=== PATIENT | female | born 1950 | race Caucasian/White ===

== ENCOUNTER 2017-01-09 22:44 | Emergency (ER) | payer SELFPAY ==
--- NOTE | 2017-01-09 23:17 | EDM.PDOC ---
ED HPI GENERAL MEDICAL PROBLEM - General Chief Complaint: Gastrointestinal Problem Stated Complaint: DIARRHEA Time Seen by Provider: 01/09/17 23:02 - History of Present Illness INITIAL COMMENTS - FREE TEXT/NARRATIVE: HISTORY AND PHYSICAL: History of present illness: The patient is a 66-year-old female who was diagnosed with IBS many years ago and follows with Dr. Irving the clinic and presents stating that she started having profuse diarrhea about 1-1/2 hours ago and could not get off the toilet. The patient says that she normally has 2-3 bowel movements a day and she 'll have flareups where she'll have more bowel movements a couple times a week but that does not worry her. Tonight she had an episode where she felt she could not get up the toilet because of the spasm and the loose stools although they were not black and bloody. She says that in that timeframe she touch down there and she thought that she felt something sticking out and she is here for evaluation of that. She has no chest pain dizziness lightheadedness shortness of breath and no abdominal pain. She doesn't feel dehydrated. Review of systems: As per history of present illness and below otherwise all systems reviewed and negative. Past medical history: As per history of present illness and as reviewed below otherwise noncontributory. Surgical history: As per history of present illness and as reviewed below otherwise noncontributory. Social history: No reported history of drug or alcohol abuse. Family history: As per history of present illness and as reviewed below otherwise noncontributory. Physical exam: Gen.: Well-developed well-nourished female who is nontoxic and speaking clearly and easily in the ED. Vital signs of an review by me HEENT: Atraumatic, normocephalic, negative for conjunctival pallor or scleral icterus, mucous membranes moist, throat clear, neck supple, nontender, trachea midline. Lungs: Clear to auscultation, breath sounds equal bilaterally, chest nontender. Heart: S1S2, regular rate and rhythm no overt murmurs Abdomen: Soft, nondistended, nontender. Bowel sounds are very hyperactive and there is tympany on percussion but there is no tenderness rebound or guarding. Negative for masses or hepatosplenomegaly. Negative for costovertebral tenderness. Pelvis: Stable nontender. Genitourinary: Deferred. Rectal: There are no gross lesions and tone is intact. At a proximally 11:00 lithotomy position there is a small firm area which is nontender and somewhat clearish whitish in color and extends up past the anal verge. There is no bleeding. Extremities: Atraumatic, negative for cords or calf pain. Neurovascular unremarkable. Neuro: Awake, alert, oriented. Cranial nerves II through XII unremarkable. Cerebellum unremarkable. Motor and sensory unremarkable throughout. Exam nonfocal. Diagnostics: [] Therapeutics: [] I offered the patient workup for her diarrhea and she would defer that at this time. It appears that her family encouraged her coming in because they were worried about her rectal prolapse which I am not seeing here. I did ask her to follow-up with Dr. Alvares to get a repeat colonoscopy as her last one was about 3 years ago and in light of her history she should get that repeated. I also told her that this may be a small hemorrhoid or lesion that would need to be further evaluated. Impression: Episode of profuse diarrhea improved with rectal lesion stable Definitive disposition and diagnosis as appropriate pending reevaluation and review of above. 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 ED EXAM, GENERAL - Physical Exam Exam: See Below (See dictation) Course - Vital Signs Last Recorded V/S: Last Vital Signs Temp 36.3 C 01/09/17 22:44 Pulse 73 01/09/17 22:44 Resp 18 01/09/17 22:44 BP 144/69 H 01/09/17 22:44 Pulse Ox 94 L 01/09/17 22:44 Departure - Departure Time of Disposition: 23:16 Disposition: Home, Self-Care 01 Condition: Good Clinical Impression: Rectal pain, History of IBS - Discharge Information Referrals: PCP,None [Primary Care Provider] - Additional Instructions: The following information is given to patients seen in the emergency department who are being discharged to home. This information is to outline your options for follow-up care. We provide all patients seen in our emergency department with a follow-up referral. The need for follow-up, as well as the timing and circumstances, are variable depending upon the specifics of your emergency department visit. If you don't have a primary care physician on staff, we will provide you with a referral. We always advise you to contact your personal physician following an emergency department visit to inform them of the circumstance of the visit and for follow-up with them and/or the need for any referrals to a consulting specialist. The emergency department will also refer you to a specialist when appropriate. This referral assures that you have the opportunity for followup care with a specialist. All of these measure are taken in an effort to provide you with optimal care, which includes your followup. Under all circumstances we always encourage you to contact your private physician who remains a resource for coordinating your care. When calling for followup care, please make the office aware that this follow-up is from your recent emergency room visit. If for any reason you are refused follow-up, please contact the [facility] emergency department at and ask to speak to the emergency department charge nurse. [facility] Primary care- Internal Medicine and Family [address] [address] Please call and follow-up with Dr. Alvares in the clinic as we discussed to get a referral for repeat colonoscopy as you are due. If the area your rectum becomes larger or painful please return to ER or see her provider. Please monitor this area for any changes or new problems. Return to ER as needed and as discussed
[2017-01-09 23:30] VITALS: BP 140/71
== END 2017-01-09 23:30 | disposition home or self-care (01) ==
LOC: MW.ED 22:44
DX: K62.89 Other specified diseases of anus and rectum (principal); R19.7 Diarrhea, unspecified; Z87.19 Personal history of other diseases of the digestive system
CPT/HCPCS: 99282; 99283

== ENCOUNTER 2017-07-12 21:28 | Emergency (ER) | payer MEDICAID, MEDICARE ==
[2017-07-12] MEDS ORDERED: methylPREDNISolone Sodium Succinate 125 MG/2 ML SDV IVPUSH ONE (21:37)
[2017-07-12] MEDS ORDERED: Albuterol/Ipratropium 3.0-0.5 MG/3 ML Neb Soln NEB ONE (21:37)
--- NOTE | 2017-07-12 21:39 | EDM.PDOC ---
ED HPI GENERAL MEDICAL PROBLEM - General Chief Complaint: Respiratory Problem Stated Complaint: TROUBLE BREATHING Time Seen by Provider: 07/12/17 21:39 Source of Information: Reports: Patient - History of Present Illness INITIAL COMMENTS - FREE TEXT/NARRATIVE: HISTORY AND PHYSICAL: History of present illness: [Patient presented to emergency room by private vehicle for shortness of breath , apparently she has a history of asthma and remote smoking history she has been on prednisone and doxycycline as of recent for a bronchitis as well as using HFA inhaler On arrival she was provided 5 Solu-Medrol 125 mg IV and DuoNeb which improved her resolved symptoms O2 sats remained normal her lungs have improved nicely still slightly diminished on the right lower base however patient is it off is offered admission but refuses she does have access to a nebulizer machine and albuterol nebs child recommended she take 3 times per day she is on oral prednisone and essentially failed that however at patients request/desire she will return home and use the nebs if she has symptoms persist or worsen she'll return Currently no fever nausea vomiting chills sweats she does have persistent cough she is no longer short of breath progressed with performed ambulatory O2 sats remained 9697% ] Review of systems: As per history of present illness and below otherwise all systems reviewed and negative. Past medical history: As per history of present illness and as reviewed below otherwise noncontributory. Surgical history: As per history of present illness and as reviewed below otherwise noncontributory. Social history: No reported history of drug or alcohol abuse. Family history: As per history of present illness and as reviewed below otherwise noncontributory. Physical exam: HEENT: Atraumatic, normocephalic, pupils reactive, negative for conjunctival pallor or scleral icterus, mucous membranes moist, throat clear, neck supple, nontender, trachea midline. Lungs: Clear to auscultation, breath sounds equal bilaterally, chest nontender.Post DuoNeb and Solu-Medrol Heart: S1S2, regular, negative for clicks, rubs, or JVD. Abdomen: Soft, nondistended, nontender. Negative for masses or hepatosplenomegaly. Negative for costovertebral tenderness. Pelvis: Stable nontender. Genitourinary: Deferred. Rectal: Deferred. Extremities: Atraumatic, negative for cords or calf pain. Neurovascular unremarkable. Neuro: Awake, alert, oriented. Cranial nerves II through XII unremarkable. Cerebellum unremarkable. Motor and sensory unremarkable throughout. Exam nonfocal. Diagnostics: []CBC CMP UA troponin BN peptide EKG Chest 1 view Therapeutics: []Normal saline 1 25 mL DuoNeb Solu-Medrol 125 mg IV Continue current medications Albuterol nebs tonight every 4 hours as needed DuoNeb prescription provided to fill in the morning Impression: []Short of breath Leukocytosis likely elevated with prednisone however neutrophils are slightly BUMPED patient is currently on doxycycline Recent bronchitis diagnosis chronic asthma/COPD Definitive disposition and diagnosis as appropriate pending reevaluation and review of above. denies pain Pain Score (Numeric/FACES): 0 - Related Data Allergies Allergy/AdvReac Type Severity Reaction Status Date / Time No Known Allergies Allergy Verified 07/12/17 21:37 Home Meds: Home Meds LORazepam 1 tab PO ASDIRECTED PRN 10/07/13 [History] PARoxetine [Paxil] 1 tab PO DAILY 10/07/13 [History] Past Medical History - Past Health History Medical/Surgical History: Denies Medical/Surgical History Cardiovascular History: Reports: Other (See Below) Other Cardiovascular History: clots Gastrointestinal History: Reports: Irritable Bowel Syndrome [employer] History: Reports: Psychiatric History: Reports: Anxiety - Past Surgical History Female Surgical History: Reports: Tubal Ligation Social & Family History - Family History Family Medical History: Noncontributory - Caffeine Use Caffeine Use: Reports: Coffee Caffeine Use Comment: daily ED ROS GENERAL - Review of Systems Review Of Systems: ROS reveals no pertinent complaints other than HPI. ED EXAM, GENERAL - Physical Exam Exam: See Below Course - Vital Signs Last Recorded V/S: Last Vital Signs Temp 98.6 F 07/12/17 22:51 Pulse 96 07/12/17 22:51 Resp 24 H 07/12/17 22:51 BP 140/71 07/12/17 22:51 Pulse Ox 98 07/12/17 22:51 - Orders/Labs/Meds Orders: Active Orders 24 hr Category Date Time Status EKG Documentation Completion [RC] STAT Care 07/12/17 21:37 Active RT Aerosol Therapy [RC] ASDIRECTED Care 07/12/17 21:38 Active Chest 1V Frontal [CR] Stat Exams 07/12/17 21:37 Taken UA W/MICROSCOPIC [URIN] Stat Lab 07/12/17 22:44 Ordered Sodium Chloride 0.9% [Normal Saline] 1,000 ml Med 07/12/17 21:45 Active IV STAT Medication Orders Sodium Chloride (Normal Saline) 1,000 mls @ 125 mls/hr IV STAT SINAN Last Admin: 07/12/17 21:55 Dose: 125 mls/hr Labs: Laboratory Tests 07/12/17 07/12/17 07/12/17 Range/Units 21:30 21:30 21:30 WBC 15.67 H (4.0-11.0) K/uL RBC 3.88 L (4.30-5.90) M/uL Hgb 13.7 (12.0-16.0) g/dL Hct 38.1 (36.0-46.0) % MCV 98.2 H (80.0-98.0) fL MCH 35.3 H (27.0-32.0) pg MCHC 36.0 (31.0-37.0) g/dL RDW Std Deviation 46.2 (28.0-62.0) fl RDW Coeff of Vishal 13 (11.0-15.0) % Plt Count 313 (150-400) K/uL MPV 11.00 (7.40-12.00) fL Add Manual Diff YES Neutrophils % (Manual) 84 H (48.0-80.0) % Lymphocytes % (Manual) 9 L (16.0-40.0) % Monocytes % (Manual) 6 (0.0-15.0) % Eosinophils % (Manual) 1 (0.0-7.0) % Nucleated RBC % 0.0 /100WBC Absolute Seg Neuts 13.2 H (1.4-5.7) Lymphocytes # (Manual) 1.4 (0.6-2.4) Monocytes # (Manual) 0.9 H (0.0-0.8) Eosinophils # (Manual) 0.2 (0.0-0.7) Nucleated RBCs # 0 K/uL Sodium 131 L (136-145) mmol/L Potassium 3.7 (3.5-5.1) mmol/L Chloride 100 (98-107) mmol/L Carbon Dioxide 16.5 L (21.0-32.0) mmol/L BUN 9 (7.0-18.0) mg/dL Creatinine 0.7 (0.6-1.0) mg/dL Est Cr Clr Drug Dosing TNP Estimated GFR (MDRD) > 60.0 ml/min Glucose 122 H (74-106) mg/dL Calcium 8.7 (8.5-10.1) mg/dL Total Bilirubin 0.2 (0.2-1.0) mg/dL AST 55 H (15-37) IU/L ALT 49 (14-63) IU/L Alkaline Phosphatase 176 H (46-116) U/L Troponin I < 0.050 (0.000-0.056) ng/mL B-Natriuretic Peptide 56 (<100) PG/ML Total Protein 7.6 (6.4-8.2) g/dL Albumin 3.6 (3.4-5.0) g/dL Globulin 4.0 H (2.0-3.5) g/dL Albumin/Globulin Ratio 0.9 L (1.3-2.8) Urine Color Urine Appearance Urine pH (5.0-8.0) Ur Specific [place] (1.001-1.035) Urine Protein (NEGATIVE) mg/dL Urine Glucose (UA) (NEGATIVE) mg/dL Urine Ketones (NEGATIVE) mg/dL Urine Occult Blood (NEGATIVE) Urine Nitrite (NEGATIVE) Urine Bilirubin (NEGATIVE) Urine Urobilinogen (<2.0) EU/dL Ur Leukocyte Esterase (NEGATIVE) Urine RBC (0-2/HPF) Urine WBC (0-5/HPF) Ur Epithelial Cells (NONE-FEW) Urine Bacteria (NEGATIVE) 07/12/17 Range/Units 22:44 WBC (4.0-11.0) K/uL RBC (4.30-5.90) M/uL Hgb (12.0-16.0) g/dL Hct (36.0-46.0) % MCV (80.0-98.0) fL MCH (27.0-32.0) pg MCHC (31.0-37.0) g/dL RDW Std Deviation (28.0-62.0) fl RDW Coeff of Vishal (11.0-15.0) % Plt Count (150-400) K/uL MPV (7.40-12.00) fL Add Manual Diff Neutrophils % (Manual) (48.0-80.0) % Lymphocytes % (Manual) (16.0-40.0) % Monocytes % (Manual) (0.0-15.0) % Eosinophils % (Manual) (0.0-7.0) % Nucleated RBC % /100WBC Absolute Seg Neuts (1.4-5.7) Lymphocytes # (Manual) (0.6-2.4) Monocytes # (Manual) (0.0-0.8) Eosinophils # (Manual) (0.0-0.7) Nucleated RBCs # K/uL Sodium (136-145) mmol/L Potassium (3.5-5.1) mmol/L Chloride (98-107) mmol/L Carbon Dioxide (21.0-32.0) mmol/L BUN (7.0-18.0) mg/dL Creatinine (0.6-1.0) mg/dL Est Cr Clr Drug Dosing Estimated GFR (MDRD) ml/min Glucose (74-106) mg/dL Calcium (8.5-10.1) mg/dL Total Bilirubin (0.2-1.0) mg/dL AST (15-37) IU/L ALT (14-63) IU/L Alkaline Phosphatase (46-116) U/L Troponin I (0.000-0.056) ng/mL B-Natriuretic Peptide (<100) PG/ML Total Protein (6.4-8.2) g/dL Albumin (3.4-5.0) g/dL Globulin (2.0-3.5) g/dL Albumin/Globulin Ratio (1.3-2.8) Urine Color YELLOW Urine Appearance CLEAR Urine pH 6.0 (5.0-8.0) Ur Specific [place] <= 1.005 (1.001-1.035) Urine Protein NEGATIVE (NEGATIVE) mg/dL Urine Glucose (UA) NEGATIVE (NEGATIVE) mg/dL Urine Ketones NEGATIVE (NEGATIVE) mg/dL Urine Occult Blood NEGATIVE (NEGATIVE) Urine Nitrite NEGATIVE (NEGATIVE) Urine Bilirubin NEGATIVE (NEGATIVE) Urine Urobilinogen 0.2 (<2.0) EU/dL Ur Leukocyte Esterase NEGATIVE (NEGATIVE) Urine RBC 0-1 (0-2/HPF) Urine WBC 0-1 (0-5/HPF) Ur Epithelial Cells RARE (NONE-FEW) Urine Bacteria RARE (NEGATIVE) Meds: Medications Generic Name Dose Route Start Last Admin Trade Name Freq PRN Reason Stop Dose Admin Sodium Chloride 1,000 mls @ 125 mls/hr 07/12/17 21:45 07/12/17 21:55 Normal Saline IV 125 mls/hr STAT SINAN Administration Discontinued Medications Generic Name Dose Route Start Last Admin Trade Name Freq PRN Reason Stop Dose Admin Albuterol/Ipratropium 3 ml 07/12/17 21:37 07/12/17 21:58 Duoneb 3.0-0.5 Mg/3 Ml NEB 07/12/17 21:38 3 ml ONETIME ONE Administration Methylprednisolone Sodium Succinate 125 mg 07/12/17 21:37 07/12/17 21:55 Solu-Medrol IVPUSH 07/12/17 21:38 125 mg ONETIME ONE Administration Departure - Departure Time of Disposition: 23:52 Disposition: Home, Self-Care 01 Condition: Fair Clinical Impression: Cough, COPD (chronic obstructive pulmonary disease) - Discharge Information Referrals: PCP,None [Primary Care Provider] - Forms: ED Department Discharge Additional Instructions: Continue current medication as prescribed Recommend albuterol nebs every 4 hours as needed, Which you have available at home I'll provide a prescription for DuoNeb to use 3-4 times daily for 7-10 days strongly recommend Follow-up with your primary care provider within one week for recheck return to the emergency room if symptoms persist or worsen The following information is given to patients seen in the emergency department who are being discharged to home. This information is to outline your options for follow-up care. We provide all patients seen in our emergency department with a follow-up referral. The need for follow-up, as well as the timing and circumstances, are variable depending upon the specifics of your emergency department visit. If you don't have a primary care physician on staff, we will provide you with a referral. We always advise you to contact your personal physician following an emergency department visit to inform them of the circumstance of the visit and for follow-up with them and/or the need for any referrals to a consulting specialist. The emergency department will also refer you to a specialist when appropriate. This referral assures that you have the opportunity for follow-up care with a specialist. All of these measure are taken in an effort to provide you with optimal care, which includes your follow-up. Under all circumstances we always encourage you to contact your private physician who remains a resource for coordinating your care. When calling for follow-up care, please make the office aware that this follow-up is from your recent emergency room visit. If for any reason you are refused follow-up, please contact the [facility] emergency department at and asked to speak to the emergency department charge nurse. - My Orders Last 24 Hours: My Active Orders 07/12/17 21:37 EKG Documentation Completion [RC] STAT Chest 1V Frontal [CR] Stat 07/12/17 21:38 RT Aerosol Therapy [RC] ASDIRECTED 07/12/17 21:45 Sodium Chloride 0.9% [Normal Saline] 1,000 ml IV STAT 07/12/17 22:44 UA W/MICROSCOPIC [URIN] Stat - Assessment/Plan Last 24 Hours: My Active Orders 07/12/17 21:37 EKG Documentation Completion [RC] STAT Chest 1V Frontal [CR] Stat 07/12/17 21:38 RT Aerosol Therapy [RC] ASDIRECTED 07/12/17 21:45 Sodium Chloride 0.9% [Normal Saline] 1,000 ml IV STAT 07/12/17 22:44 UA W/MICROSCOPIC [URIN] Stat
[2017-07-12] MEDS ORDERED: Sodium Chloride 0.9% 1,000 ML IV SCH (21:45)
[2017-07-12 22:47] LABS: CHLORIDE,CL 100 mmol/L (98-107); SODIUM,NA 131 mmol/L (136-145)
[2017-07-13 02:07] VITALS: BP 143/70
--- NOTE | 2017-07-13 13:02 | CR ---
EXAM DATE: 07/12/17 PATIENT'S AGE: 67 Patient: JOSHUA KEYS Facility: [place], [place] Site . Site : 1950 Study: XRay Chest [id number] 10:31:03 PM Ordering Physician: Doctor Dubose Final Report: Indication: Shortness of breath, dyspnea Technique: Chest 1 view Comparison: March 27, 2009. Findings/Impression: Normal cardiac size. No pneumothorax, significant effusion, or focal infiltrate. No acute osseous abnormality. Dictated by Missy Monique MD @ Jul 12 2017 10:39PM (Electronic Signature) Report Signed by Proxy. EMBER
== END 2017-07-13 | disposition home or self-care (01) ==
LOC: MW.ED 21:28
DX: J44.9 Chronic obstructive pulmonary disease, unspecified (principal); F41.9 Anxiety disorder, unspecified; Z79.899 Other long term (current) drug therapy
CPT/HCPCS: 36415; 71045; 80053; 81001; 83880; 84484; 85025; 93005; 94640; 96361; 96374; 99285; J2930; J7040; 99284

== ENCOUNTER 2019-02-19 22:01 | Emergency (ER) | payer MEDICARE ==
[2019-02-19] MEDS ORDERED: Albuterol/Ipratropium 3.0-0.5 MG/3 ML Neb Soln NEB ONE (22:02)
[2019-02-19 22:11] VITALS: BP 138/105; PULSE 102
[2019-02-19] MEDS ORDERED: methylPREDNISolone Sodium Succinate 125 MG/2 ML SDV IVPUSH ONE (22:32)
[2019-02-19] MEDS ORDERED: LORazepam 2 MG/ML SDV IVPUSH ONE ×2 (22:32→23:15)
--- NOTE | 2019-02-20 00:07 | EDM.PDOC ---
ED HPI GENERAL MEDICAL PROBLEM - General Chief Complaint: Respiratory Problem Stated Complaint: HARD TIME BREATHING Time Seen by Provider: 02/19/19 22:36 Source of Information: Reports: Patient History Limitations: Reports: No Limitations - History of Present Illness INITIAL COMMENTS - FREE TEXT/NARRATIVE: This is a 69-year-old female who presents with shortness of breath. Patient has a history of COPD has been using her inhaler without success. Patient presents to the emergency room wheezing short of breath and very anxious. 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 Treatments - Related Data Allergies Allergy/AdvReac Type Severity Reaction Status Date / Time No Known Allergies Allergy Verified 02/19/19 22:09 Home Meds: Home Meds LORazepam 1 tab PO ASDIRECTED PRN 10/07/13 [History] Albuterol Sulfate [Albuterol Sulfate Hfa] 18 gm IH ASDIRECTED 02/19/19 [History] Albuterol/Ipratropium [DuoNeb 3.0-0.5 MG/3 ML] 3 ml .XX ASDIRECTED 02/19/19 [ History] Escitalopram [Lexapro] 10 mg PO DAILY 02/19/19 [History] Past Medical History - Past Health History Medical/Surgical History: Denies Medical/Surgical History HEENT History: Reports: None Cardiovascular History: Reports: Blood Clots/VTE/DVT Other Cardiovascular History: clots Respiratory History: Reports: Asthma, COPD Gastrointestinal History: Reports: Irritable Bowel Syndrome Genitourinary History: Reports: None 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: Musculoskeletal History: Reports: None Neurological History: Reports: None Psychiatric History: Reports: Anxiety, Depression Endocrine/Metabolic History: Reports: None Hematologic History: Reports: None Immunologic History: Reports: None Oncologic (Cancer) History: Reports: None Dermatologic History: Reports: None - Infectious Disease History Infectious Disease History: Reports: Chicken Pox - Past Surgical History Head Surgeries/Procedures: Reports: None GI Surgical History: Reports: Appendectomy Female Surgical History: Reports: Tubal Ligation Social & Family History - Family History Family Medical History: Noncontributory - Tobacco Use Smoking Status *Q: Former Smoker Used Tobacco, but Quit: Yes Month/Year Tobacco Last Used: 1989 - Caffeine Use Caffeine Use: Reports: Coffee Caffeine Use Comment: daily - Recreational Drug Use Recreational Drug Use: No ED ROS GENERAL - Review of Systems Review Of Systems: See Below Constitutional: Reports: No Symptoms HEENT: Reports: No Symptoms Respiratory: Reports: Shortness of Breath, Wheezing Cardiovascular: Reports: No Symptoms Endocrine: Reports: No Symptoms GI/Abdominal: Reports: No Symptoms : Reports: No Symptoms Musculoskeletal: Reports: No Symptoms Skin: Reports: No Symptoms Neurological: Reports: No Symptoms Psychiatric: Reports: Anxiety Hematologic/Lymphatic: Reports: No Symptoms Immunologic: Reports: No Symptoms ED EXAM, GENERAL - Physical Exam Exam: See Below Free Text/Narrative:: 69-year-old patient presents with wheezing. On exam patient is wheezing bilaterally. Patient denies chest pain patient abdomen soft nontender patient' s extremities are normal. Patient back is is normal. Exam Limited By: No Limitations General Appearance: Alert, WD/WN, Anxious, Mild Distress Eye Exam: Bilateral Eye: Normal Fundi, Normal Inspection Ears: Normal External Exam, Normal Canal, Hearing Grossly Normal, Normal TMs Ear Exam: Bilateral Ear: Auricle Normal, Canal Normal Nose: Normal Inspection, Normal Mucosa, No Blood Throat/Mouth: Normal Inspection, Normal Lips, Normal Teeth, Normal Gums Head: Atraumatic, Normocephalic Neck: Normal Inspection, Supple Respiratory/Chest: Crackles, Wheezing Cardiovascular: Normal Peripheral Pulses, Regular Rate, Rhythm, No Edema GI/Abdominal: Normal Bowel Sounds, Soft, Non-Tender (Female) Exam: Deferred Rectal (Female) Exam: Deferred Extremities: Normal Inspection, Normal Range of Motion, No Pedal Edema, Normal Capillary Refill Neurological: Alert, Oriented, CN II-XII Intact, Normal Reflexes Psychiatric: Anxious, Tearful Skin Exam: Warm, Dry, Intact, Normal Color EKG INTERPRETATION EKG Date: 02/20/19 Rhythm: NSR Course - Vital Signs Last Recorded V/S: Last Vital Signs Temp 97.8 F 02/19/19 22:07 Pulse 102 H 02/19/19 22:07 Resp 33 H 02/19/19 22:07 BP 138/105 H 02/19/19 22:07 Pulse Ox 97 02/19/19 22:07 - Orders/Labs/Meds Orders: Active Orders 24 hr Category Date Time Status RT Aerosol Therapy [RC] ASDIRECTED Care 02/19/19 22:02 Active Chest 1V Frontal [CR] Stat Exams 02/19/19 22:41 Taken Meds: Medications Discontinued Medications Generic Name Dose Route Start Last Admin Trade Name Bobby PRN Reason Stop Dose Admin Albuterol/Ipratropium 3 ml 02/19/19 22:02 02/19/19 22:01 Duoneb 3.0-0.5 Mg/3 Ml NEB 02/19/19 22:03 3 ml ONETIME ONE Administration Lorazepam 0.5 mg 02/19/19 22:32 02/19/19 22:39 Ativan IVPUSH 02/19/19 22:33 0.5 mg ONETIME ONE Administration Lorazepam 1 mg 02/19/19 23:15 Ativan IVPUSH 02/19/19 23:16 ONETIME ONE Methylprednisolone Sodium Succinate 125 mg 02/19/19 22:32 02/19/19 22:39 Solu-Medrol IVPUSH 02/19/19 22:33 125 mg ONETIME ONE Administration Departure - Departure Time of Disposition: 00:08 Disposition: Home, Self-Care 01 Condition: Good Clinical Impression: COPD (chronic obstructive pulmonary disease) Qualifiers: COPD type: chronic bronchitis Chronic bronchitis type: simple Qualified Code(s) : J41.0 - Simple chronic bronchitis - Discharge Information Referrals: Anselmo Alvares MD [Primary Care Provider] - Sepsis Event Note - Evaluation Sepsis Screening Result: No Definite Risk - Focused Exam Vital Signs: Vital Signs Temp Pulse Resp BP Pulse Ox 02/19/19 22:07 97.8 F 102 H 33 H 138/105 H 97 Date Exam was Performed: 02/20/19 Time Exam was Performed: 00:02 - My Orders Last 24 Hours: My Active Orders 02/19/19 22:41 Chest 1V Frontal [CR] Stat - Assessment/Plan Last 24 Hours: My Active Orders 02/19/19 22:41 Chest 1V Frontal [CR] Stat
--- NOTE | 2019-02-20 00:07 | CR ---
INDICATION: sob. hx of copd TECHNIQUE: Chest 1 view. COMPARISON: 07/12/16 FINDINGS: Cardiovascular and mediastinum: Heart size and vasculature are normal in caliber and appearance. Mediastinum is within normal limits. Lungs and pleural space: Lungs are clear. No sign of infiltrate or mass. No sign of pleural effusion. No pneumothorax. Bones and soft tissues: No significant findings. IMPRESSION: Unremarkable chest. Dictated by: Baldomero Jacob MD @ 02/20/2019 00:07:02 (Electronically Signed)
== END 2019-02-20 00:20 | disposition home or self-care (01) ==
LOC: MW.ED 22:01
DX: J41.0 Simple chronic bronchitis (principal); F41.9 Anxiety disorder, unspecified; F32.9 Major depressive disorder, single episode, unspecified; Z79.899 Other long term (current) drug therapy; Z87.891 Personal history of nicotine dependence
CPT/HCPCS: 71045; 93005; 96374; 96375; 99285; J2060; J2930; 99284; J7620-GY

== ENCOUNTER 2021-09-12 00:06 | Emergency (ER) | payer MEDICARE ==
[2021-09-12 00:47] LABS: CARBON DIOXIDE,CO2 22.2 mmol/L (21.0-32.0); POTASSIUM,K 3.6 mmol/L (3.5-5.1)
[2021-09-12] MEDS ORDERED: Acetaminophen 500 MG Tab PO ONE (02:51)
[2021-09-12 04:37] VITALS: BP 124/72; PULSE 77
== END 2021-09-12 04:36 | disposition home or self-care (01) ==
LOC: MW.ED 00:06
DX: R07.89 Other chest pain (principal); R42 Dizziness and giddiness; J45.909 Unspecified asthma, uncomplicated; Z79.899 Other long term (current) drug therapy; Z90.49 Acquired absence of other specified parts of digestive tract; Z20.822 Contact with and (suspected) exposure to COVID-19
CPT/HCPCS: 36415; 71045; 80053; 81001; 83880; 84484; 85025; 93005; 99285; A9270; U0002; 93010; 99284

== ENCOUNTER 2023-02-21 12:07 | Observation (INO) | payer MEDICARE, MEDICAID ==
[2023-02-21] MEDS ORDERED: Albuterol/Ipratropium 3.0-0.5 MG/3 ML Neb Soln ONE (13:15)
[2023-02-21] MEDS ORDERED: methylPREDNISolone Sodium Succinate 125 MG/2 ML SDV IVPUSH ONE (13:19)
[2023-02-21] MEDS ORDERED: Magnesium Sulfate (4.06 MEQ/ML) 5 GM/10 ML SDV IV STA (13:19)
[2023-02-21] MEDS ORDERED: Albuterol/Ipratropium 3.0-0.5 MG/3 ML Neb Soln NEB ONE ×3 (13:19→15:47)
[2023-02-21] MEDS ORDERED: Magnesium Sulfate/Water 2 GM in Premix Bag 1 BAG IV ONE (13:42)
[2023-02-21 13:44] LABS: HEMATOCRIT 39.4 % (37.0-47.0); MEAN CORPUSCULAR HEMOGLOBIN 32.3 pg (28.0-32.0); MEAN CORPUSCULAR HGB CONC 35.5 g/dL (32.0-36.0); PLATELET COUNT,PLT 260 K/uL (150-400); RED BLOOD CELL COUNT 4.33 M/uL (4.10-5.30); WHITE BLOOD CELL COUNT,WBC 11.93 K/uL (3.9-11.3)
[2023-02-21 14:08] LABS: A/G RATIO 0.8 (0.9-1.6); ALBUMIN 3.4 g/dL (3.4-5.0); BILIRUBIN TOTAL 0.5 mg/dL (0.2-1.0); CALCIUM 9.3 mg/dL (8.5-10.1); CARBON DIOXIDE,CO2 27.5 mmol/L (21.0-32.0); EST CRCL DRUG DOSING (CG) 38.94 mL/min; MAGNESIUM 2.1 mg/dL (1.8-2.4); POTASSIUM,K 3.6 mmol/L (3.5-5.1); PROTEIN TOTAL,TP 7.7 g/dL (6.4-8.2)
[2023-02-21 14:48] LABS: BASOPHILS ABSOLUTE MAN 0.12 K/uL (0.00-0.20); BASOPHILS PERCENT MAN 1 % (0-1); EOSINOPHILS ABSOLUTE MAN 0.12 K/uL (0.00-0.45); EOSINOPHILS PERCENT MAN 1 % (0-6); MONOCYTES ABSOLUTE MAN 0.84 K/uL (0.00-0.80); MONOCYTES PERCENT MAN 7 % (0-8); SEG NEUTROPHILS ABSOLUTE MAN 7.16 K/uL (1.80-7.70); SEG NEUTROPHILS PERCENT MAN 60 % (41-71)
[2023-02-21 14:50] LABS: REACTIVE LYMPHOCYTES FEW
[2023-02-21 14:51] LABS: LYMPHOCYTES PERCENT MAN 31 % (24-44)
[2023-02-21 15:33] LABS: CORONAVIRUS COVID-19 NAA NEGATIVE (NEGATIVE); INFLUENZA A NAA NEGATIVE (NEGATIVE); INFLUENZA B NAA NEGATIVE (NEGATIVE); RESPIRATORY SYNCYTIAL VIR NAA POSITIVE (NEGATIVE)
[2023-02-21] MEDS ORDERED: Sodium Chloride 0.9% 10 ML Syringe FLUSH PRN (16:23)
[2023-02-21] MEDS ORDERED: Albuterol 0.083% 2.5 MG/3 ML Neb Soln NEB PRN (16:23)
[2023-02-21] MEDS ORDERED: Sodium Chloride 0.9% 2.5 ML Syringe FLUSH PRN (16:23)
[2023-02-21] MEDS ORDERED: Ondansetron 4 MG/2 ML SDV IVPUSH PRN (16:23)
[2023-02-21] MEDS ORDERED: Acetaminophen 325 MG Tab PO PRN (16:23)
[2023-02-21] MEDS ORDERED: Benzonatate 100 MG Cap PO PRN (16:58)
[2023-02-21] MEDS ORDERED: Sodium Chloride 0.9% 1,000 ML IV ONE (17:00)
[2023-02-21] MEDS ORDERED: Pneumococcal Polyvalent-23 Vaccine 0.5 ML SDV SUBCUT ONE (17:19)
[2023-02-21] MEDS: Codeine/guaiFENesin 10-100 MG/5 ML Syrup 5 ML Cup PO PRN (17:42)
[2023-02-21] MEDS: cefTRIAXone 1 GM in Sodium Chloride 0.9% 50 ML IV SCH (17:42)
[2023-02-21] MEDS: Albuterol/Ipratropium 3.0-0.5 MG/3 ML Neb Soln NEB SCH ×2 (18:18→21:02)
[2023-02-21] MEDS: LORazepam 1 MG Tab PO PRN (21:03)
[2023-02-21] MEDS: Apixaban 2.5 MG Tab PO SCH (21:04)
[2023-02-21] MEDS: Montelukast 10 MG Tab PO SCH (21:04)
[2023-02-21] MEDS: methylPREDNISolone Sodium Succinate 40 MG/1 ML SDV IVPUSH SCH (23:58)
[2023-02-22] MEDS: Albuterol/Ipratropium 3.0-0.5 MG/3 ML Neb Soln NEB SCH ×6 (03:03→21:22)
[2023-02-22 05:40] LABS: BASOPHILS ABSOLUTE AUTO 0.03 K/uL (0.00-0.20); BASOPHILS PERCENT AUTO 0.2 % (0.0-1.0); HEMATOCRIT 33.9 % (37.0-47.0); IMMATURE GRAN ABSOLUTE AUTO 0.39 K/uL (0.00-0.05); IMMATURE GRAN PERCENT AUTO 3.2 % (0.0-0.4); LYMPHOCYTES ABSOLUTE AUTO 1.42 K/uL (1.00-4.80); LYMPHOCYTES PERCENT AUTO 11.6 % (24.0-44.0); MEAN CORPUSCULAR HEMOGLOBIN 32.1 pg (28.0-32.0); MEAN CORPUSCULAR HGB CONC 35.4 g/dL (32.0-36.0); MEAN CORPUSCULAR VOLUME 90.6 fL (83.0-99.0); MEAN PLATELET VOLUME 10.1 fL (9.4-12.3); MONOCYTES ABSOLUTE AUTO 0.29 K/uL (0.00-0.80); MONOCYTES PERCENT AUTO 2.4 % (0.0-8.0); NEUTROPHILS ABSOLUTE AUTO 10.11 K/uL (1.80-7.70); NEUTROPHILS PERCENT AUTO 82.6 % (41.0-71.0); PLATELET COUNT,PLT 216 K/uL (150-400); RED BLOOD CELL COUNT 3.74 M/uL (4.10-5.30); WHITE BLOOD CELL COUNT,WBC 12.24 K/uL (3.9-11.3)
[2023-02-22 05:56] LABS: CALCIUM 8.5 mg/dL (8.5-10.1); CARBON DIOXIDE,CO2 25.7 mmol/L (21.0-32.0); CREATININE 0.9 mg/dL (0.6-1.0); EST CRCL DRUG DOSING (CG) 43.26 mL/min; POTASSIUM,K 3.5 mmol/L (3.5-5.1)
[2023-02-22] MEDS: Pantoprazole 40 MG Tab.CR PO SCH (06:32)
[2023-02-22] MEDS: Levothyroxine 25 MCG Tab PO SCH (08:58)
[2023-02-22] MEDS: buPROPion 150 MG Tab.ER PO SCH (08:59)
[2023-02-22] MEDS: amLODIPine 5 MG Tab PO SCH (09:00)
[2023-02-22] MEDS: Apixaban 2.5 MG Tab PO SCH ×2 (09:00→21:22)
[2023-02-22] MEDS: Escitalopram 10 MG Tab PO SCH (09:02)
[2023-02-22] MEDS: Rosuvastatin 10 MG Tab PO SCH (09:04)
[2023-02-22] MEDS: methylPREDNISolone Sodium Succinate 40 MG/1 ML SDV IVPUSH SCH ×2 (10:21→23:51)
[2023-02-22] MEDS: ADVAIR INH SCH ×2 (15:14→21:22)
[2023-02-22] MEDS: cefTRIAXone 1 GM in Sodium Chloride 0.9% 50 ML IV SCH (17:13)
[2023-02-22] MEDS: Montelukast 10 MG Tab PO SCH (21:22)
[2023-02-22] MEDS: LORazepam 1 MG Tab PO PRN (21:51)
[2023-02-23] MEDS: Codeine/guaiFENesin 10-100 MG/5 ML Syrup 5 ML Cup PO PRN (01:51)
[2023-02-23] MEDS: Albuterol/Ipratropium 3.0-0.5 MG/3 ML Neb Soln NEB SCH ×2 (01:51→06:56)
[2023-02-23 06:20] LABS: BASOPHILS ABSOLUTE AUTO 0.06 K/uL (0.00-0.20); BASOPHILS PERCENT AUTO 0.3 % (0.0-1.0); HEMATOCRIT 34.4 % (37.0-47.0); HEMOGLOBIN 12.1 g/dL (12.0-16.0); IMMATURE GRAN ABSOLUTE AUTO 0.96 K/uL (0.00-0.05); IMMATURE GRAN PERCENT AUTO 5.3 % (0.0-0.4); LYMPHOCYTES ABSOLUTE AUTO 1.24 K/uL (1.00-4.80); LYMPHOCYTES PERCENT AUTO 6.9 % (24.0-44.0); MEAN CORPUSCULAR HEMOGLOBIN 32.3 pg (28.0-32.0); MEAN CORPUSCULAR HGB CONC 35.2 g/dL (32.0-36.0); MEAN CORPUSCULAR VOLUME 91.7 fL (83.0-99.0); MEAN PLATELET VOLUME 10.1 fL (9.4-12.3); MONOCYTES ABSOLUTE AUTO 0.78 K/uL (0.00-0.80); MONOCYTES PERCENT AUTO 4.3 % (0.0-8.0); NEUTROPHILS ABSOLUTE AUTO 15.05 K/uL (1.80-7.70); NEUTROPHILS PERCENT AUTO 83.2 % (41.0-71.0); PLATELET COUNT,PLT 267 K/uL (150-400); RED BLOOD CELL COUNT 3.75 M/uL (4.10-5.30); WHITE BLOOD CELL COUNT,WBC 18.09 K/uL (3.9-11.3)
[2023-02-23 06:44] LABS: CALCIUM 8.8 mg/dL (8.5-10.1); CARBON DIOXIDE,CO2 26.3 mmol/L (21.0-32.0); EST CRCL DRUG DOSING (CG) 38.94 mL/min; POTASSIUM,K 3.7 mmol/L (3.5-5.1)
[2023-02-23] MEDS: Pantoprazole 40 MG Tab.CR PO SCH (06:56)
[2023-02-23] MEDS: Levothyroxine 25 MCG Tab PO SCH (06:56)
[2023-02-23] MEDS: ADVAIR INH SCH (06:56)
[2023-02-23] MEDS: amLODIPine 5 MG Tab PO SCH (08:41)
[2023-02-23] MEDS: Escitalopram 10 MG Tab PO SCH (08:42)
[2023-02-23] MEDS: Apixaban 2.5 MG Tab PO SCH (08:42)
[2023-02-23] MEDS: buPROPion 150 MG Tab.ER PO SCH (08:43)
[2023-02-23] MEDS: Rosuvastatin 10 MG Tab PO SCH (08:43)
[2023-02-23] MEDS: methylPREDNISolone Sodium Succinate 40 MG/1 ML SDV IVPUSH SCH (11:31)
[2023-02-23 12:53] VITALS: BP 146/66; PULSE 79
== END 2023-02-23 12:22 | disposition home or self-care (01) ==
LOC: MW.ED 12:07 → MW.MS 15:51
PROVIDERS: ADMIT Internal Medicine; ATTEND Internal Medicine
DX: J96.01 Acute respiratory failure with hypoxia (principal); J45.40 Moderate persistent asthma, uncomplicated; E03.9 Hypothyroidism, unspecified; J20.5 Acute bronchitis due to respiratory syncytial virus; F41.9 Anxiety disorder, unspecified; I10 Essential (primary) hypertension; Z87.891 Personal history of nicotine dependence; Z86.718 Personal history of other venous thrombosis and embolism; Z79.51 Long term (current) use of inhaled steroids; Z79.890 Hormone replacement therapy; Z79.899 Other long term (current) drug therapy
CPT/HCPCS: 0241U; 36415; 71045; 80048; 80053; 83735; 85025; 94640; 96365; 96366; 96367; 96375; 96376; 99285; A9270; G0378; J0696; J2920; J2930; J3475; J3490; J7030; 96374; J7620-GY

== ENCOUNTER 2023-12-26 18:16 | Emergency (ER) | payer MEDICARE, MEDICAID ==
[2023-12-26] MEDS ORDERED: Sodium Chloride 0.9% 10 ML Syringe FLUSH PRN (18:27)
[2023-12-26] MEDS ORDERED: Sodium Chloride 0.9% 2.5 ML Syringe FLUSH PRN (18:27)
[2023-12-26 18:40] LABS: BASOPHILS ABSOLUTE AUTO 0.09 K/uL (0.00-0.20); BASOPHILS PERCENT AUTO 0.6 % (0.0-1.0); EOSINOPHILS ABSOLUTE AUTO 0.12 K/uL (0.00-0.45); EOSINOPHILS PERCENT AUTO 0.9 % (0.0-6.0); HEMOGLOBIN 14.1 g/dL (12.0-16.0); IMMATURE GRAN ABSOLUTE AUTO 0.04 K/uL (0.00-0.05); IMMATURE GRAN PERCENT AUTO 0.3 % (0.0-0.4); LYMPHOCYTES PERCENT AUTO 22.3 % (24.0-44.0); MEAN CORPUSCULAR HEMOGLOBIN 32.8 pg (28.0-32.0); MEAN CORPUSCULAR HGB CONC 35.3 g/dL (32.0-36.0); MEAN PLATELET VOLUME 10.3 fL (9.4-12.3); MONOCYTES ABSOLUTE AUTO 1.06 K/uL (0.00-0.80); MONOCYTES PERCENT AUTO 7.6 % (0.0-8.0); NEUTROPHILS ABSOLUTE AUTO 9.47 K/uL (1.80-7.70); NEUTROPHILS PERCENT AUTO 68.3 % (41.0-71.0); PLATELET COUNT,PLT 287 K/uL (150-400); WHITE BLOOD CELL COUNT,WBC 13.88 K/uL (3.9-11.3)
[2023-12-26] MEDS: Albuterol/Ipratropium 3.0-0.5 MG/3 ML Neb Soln NEB ONE (18:46)
[2023-12-26] MEDS: LORazepam 2 MG/ML SDV IVPUSH ONE (18:46)
[2023-12-26] MEDS: methylPREDNISolone Sodium Succinate 125 MG/2 ML SDV IVPUSH ONE (18:46)
[2023-12-26 19:13] LABS: A/G RATIO 1.1 (0.9-1.6); ALBUMIN 3.8 g/dL (3.4-5.0); BILIRUBIN TOTAL 0.5 mg/dL (0.2-1.0); CALCIUM 9.5 mg/dL (8.5-10.1); CARBON DIOXIDE,CO2 22.6 mmol/L (21.0-32.0); CREATININE 1.3 mg/dL (0.6-1.0); EST CRCL DRUG DOSING (CG) 29.95 mL/min; PROTEIN TOTAL,TP 7.2 g/dL (6.4-8.2); TSH ULTRASENSITIVE 2.83 uIU/mL (0.36-3.74)
[2023-12-26 19:19] LABS: CORONAVIRUS COVID-19 NAA NEGATIVE (NEGATIVE); INFLUENZA A NAA NEGATIVE (NEGATIVE); INFLUENZA B NAA NEGATIVE (NEGATIVE)
[2023-12-26 20:09] VITALS: BP 124/64; PULSE 92
== END 2023-12-26 20:17 | disposition home or self-care (01) ==
LOC: MW.ED 18:16
DX: J45.901 Unspecified asthma with (acute) exacerbation (principal); I10 Essential (primary) hypertension; K21.9 Gastro-esophageal reflux disease without esophagitis; Z86.16 Personal history of COVID-19; Z79.899 Other long term (current) drug therapy; Z75.8 Other problems related to medical facilities and other health care
CPT/HCPCS: 0240U; 36415; 71045; 80053; 84443; 84484; 85025; 93005; 96374; 96375; 99285; J2060; J2919; 93010; 99284; J7620-GY

== ENCOUNTER 2024-09-25 18:53 | Emergency (ER) | payer MEDICARE, MEDICAID ==
[2024-09-25] MEDS: Diphtheria,Pertussis(Acell),Tetanus Vaccine 0.5 ML Syringe IM ONE (20:13)
[2024-09-25 20:30] VITALS: BP 140/80; PULSE 73
== END 2024-09-25 20:29 | disposition home or self-care (01) ==
LOC: MW.ED 18:53
DX: S61.551A Open bite of right wrist, initial encounter (principal); E78.00 Pure hypercholesterolemia, unspecified; I10 Essential (primary) hypertension; J45.909 Unspecified asthma, uncomplicated; K21.9 Gastro-esophageal reflux disease without esophagitis; Z91.048 Other nonmedicinal substance allergy status; Z79.51 Long term (current) use of inhaled steroids; Z79.899 Other long term (current) drug therapy; Z79.01 Long term (current) use of anticoagulants; W55.01XA Bitten by cat, initial encounter; Y93.89 Activity, other specified
CPT/HCPCS: 90471; 90715; 99283; A9270; 99282

== ENCOUNTER 2024-11-26 15:08 | Emergency (ER) | payer MEDICARE, MEDICAID ==
[2024-11-26 18:03] VITALS: BP 135/78; PULSE 87
== END 2024-11-26 18:18 | disposition home or self-care (01) ==
LOC: MW.ED 15:08
DX: S09.90XA Unspecified injury of head, initial encounter (principal); S32.10XA Unspecified fracture of sacrum, initial encounter for closed fracture; G44.319 Acute post-traumatic headache, not intractable; I10 Essential (primary) hypertension; J45.909 Unspecified asthma, uncomplicated; K21.9 Gastro-esophageal reflux disease without esophagitis; E78.00 Pure hypercholesterolemia, unspecified; Z79.01 Long term (current) use of anticoagulants; Z79.899 Other long term (current) drug therapy; Z79.51 Long term (current) use of inhaled steroids; Z86.711 Personal history of pulmonary embolism; W01.10XA Fall on same level from slipping, tripping and stumbling with subsequent striking against unspecified object, initial encounter
CPT/HCPCS: 70450; 70450-26; 72125; 72125-26; 72192; 72192-26; 99283

== ENCOUNTER 2025-01-30 03:44 | Emergency (ER) | payer MEDICARE, MEDICAID ==
[2025-01-30] MEDS ORDERED: Sodium Chloride 0.9% 10 ML Syringe FLUSH PRN (03:46)
[2025-01-30] MEDS ORDERED: Sodium Chloride 0.9% 2.5 ML Syringe FLUSH PRN (03:46)
[2025-01-30 03:57] LABS: BASOPHILS ABSOLUTE AUTO 0.08 K/uL (0.00-0.20); BASOPHILS PERCENT AUTO 1.1 % (0.0-1.0); EOSINOPHILS ABSOLUTE AUTO 0.19 K/uL (0.00-0.45); EOSINOPHILS PERCENT AUTO 2.7 % (0.0-6.0); IMMATURE GRAN ABSOLUTE AUTO 0.03 K/uL (0.00-0.05); IMMATURE GRAN PERCENT AUTO 0.4 % (0.0-0.4); LYMPHOCYTES ABSOLUTE AUTO 2.15 K/uL (1.00-4.80); LYMPHOCYTES PERCENT AUTO 30.2 % (24.0-44.0); MEAN PLATELET VOLUME 9.3 fL (9.4-12.3); MONOCYTES ABSOLUTE AUTO 0.86 K/uL (0.00-0.80); MONOCYTES PERCENT AUTO 12.1 % (0.0-8.0); NEUTROPHILS ABSOLUTE AUTO 3.82 K/uL (1.80-7.70); NEUTROPHILS PERCENT AUTO 53.5 % (41.0-71.0); NRBC ABSOLUTE 0.00 K/uL (0.00-0.02); NRBC PERCENT 0.0 /100WBC (0.0-0.2); PLATELET COUNT,PLT 242 K/uL (150-400); RED BLOOD CELL COUNT 3.94 M/uL (4.10-5.30); WHITE BLOOD CELL COUNT,WBC 7.13 K/uL (3.9-11.3)
[2025-01-30] MEDS: Ondansetron 4 MG/2 ML SDV IVPUSH ONE (04:09)
[2025-01-30 04:10] LABS: INR 0.98 (0.86-1.11)
[2025-01-30 04:24] LABS: A/G RATIO 1.1 (0.9-1.6); ALANINE AMINOTRANSFERASE,ALT 44 IU/L (14-63); ASPARTATE AMNIOTRANSFERASE,AST 46 IU/L (15-37); BILIRUBIN TOTAL 0.2 mg/dL (0.2-1.0); BLOOD UREA NITROGEN,BUN 12 mg/dL (7.0-18.0); CARBON DIOXIDE,CO2 24.4 mmol/L (21.0-32.0); CHLORIDE,CL 97 mmol/L (98-107); CREATININE 0.8 mg/dL (0.6-1.0); ETHANOL BLOOD MEDICAL 163 mg/dL; GLUCOSE RANDOM 104 mg/dL (74-106); POTASSIUM,K 4.0 mmol/L (3.5-5.1); PROTEIN TOTAL,TP 7.1 g/dL (6.4-8.2); SODIUM,NA 134 mmol/L (136-145)
[2025-01-30 04:26] LABS: ESTIMATED GFR 78 mL/min (>60)
[2025-01-30 05:20] VITALS: BP 127/78; PULSE 81
== END 2025-01-30 05:30 | disposition home or self-care (01) ==
LOC: MW.ED 03:44
DX: S62.354A Nondisplaced fracture of shaft of fourth metacarpal bone, right hand, initial encounter for closed fracture (principal); S06.9X1A Unspecified intracranial injury with loss of consciousness of 30 minutes or less, initial encounter; S05.12XA Contusion of eyeball and orbital tissues, left eye, initial encounter; F10.120 Alcohol abuse with intoxication, uncomplicated; I10 Essential (primary) hypertension; E78.00 Pure hypercholesterolemia, unspecified; J45.909 Unspecified asthma, uncomplicated; W01.198A Fall on same level from slipping, tripping and stumbling with subsequent striking against other object, initial encounter; Z79.01 Long term (current) use of anticoagulants; Z79.899 Other long term (current) drug therapy; Y93.89 Activity, other specified
CPT/HCPCS: 29125; 36415; 70450; 70486; 72125; 73130; 73630; 80053; 80307; 84484; 85025; 85610; 96374; 99284; A9270; J2405; 99283